=== PATIENT | male | born 1990 | race Caucasian/White ===

== ENCOUNTER 2016-12-26 21:06 | Emergency (ER) | payer SELFPAY ==
[~2016-12-26 21:06] MED LIST: Z.0.NO CURRENT MEDS
[2016-12-26 21:07] VITALS: BP 127/77; PULSE 88; RESP 18; TEMP 98.7; O2SAT 99
[2016-12-26] MEDS ORDERED: ULTR50TA5 PO (22:24)
[2016-12-26] MEDS ORDERED: PERI0.126 SWISH-SPIT (22:24)
[2016-12-26] MEDS ORDERED: PENI500T PO (22:24)
[2016-12-26] MEDS ORDERED: IBUP-232 PO (22:24)
--- NOTE | 2016-12-26 22:24 | PD ---
HPI Chief Complaint: Oral / Dental Pain or Problem Time Seen by Provider: 22:22 Travel History International Travel<30 days: No Contact w/Intl Traveler<30days: No Traveled to known affect area: No History of Present Illness HPI 26-year-old male presents to see department for evaluation of dental pain. Patient states he has had cavity for a long time but yesterday while eating his right mandibular first molar cracked. States pain has been "unbearable" since then. Denies any fever or chills. Denies any new trauma. Patient has no other symptoms to report. PFSH Past Medical History Medical History: Denies Significant Hx Depression: Yes Diminished Hearing: No Headaches: Yes (CHRONIC) Musculoskeletal: Yes (SX TO L FA/ PLATE&SCREWS) Tetanus Vaccination: Unknown Past Surgical History Other Surgery: Yes Social History Alcohol Use: Yes Tobacco Use: Yes (ONLY OCCASIONALLY) Substance Use: Yes Allergies-Medications (Allergen,Severity, Reaction): Coded Allergies: Benadryl (Verified Allergy, Severe, SWELLING, 01/02/12) Reported Meds & Prescriptions Reported Meds & Active Scripts Active Ultram (Tramadol HCl) 50 Mg Tab 50 Mg PO Q8H PRN Ibuprofen 600 Mg Tab 600 Mg PO Q8HR PRN Penicillin V Potassium 500 Mg Tab 500 Mg PO Q6H 10 Days Peridex Liq (Chlorhexidine Gluconate (Mouth) Liq) 0.12% Soln 15 Ml SWISH-SPIT BID Review of Systems Except as stated in HPI: all other systems reviewed are Neg Physical Exam Narrative GENERAL: Well-nourished, well-developed male patient in no acute distress SKIN: Focused skin assessment warm/dry. HEAD: Normocephalic. Without erythema or edema EYES: No scleral icterus. No injection or drainage. ENT: Mucosa pink and moist. No erythema or exudates. No uvular edema. No uvular , palatal, or tonsillar deviation. Airway patent. Nasal turbinates appear normal without nasal blood, purulent drainage or septal hematoma. DENTAL: The right mandibular first molar is decayed and chipped. There is surrounding gingival erythema and edema. No appreciable abscess.. No malocclusion. NECK: Supple, trachea midline. No JVD or lymphadenopathy. CARDIOVASCULAR: Regular rate and rhythm without murmurs, gallops, or rubs. RESPIRATORY: Breath sounds equal bilaterally. No accessory muscle use. MUSCULOSKELETAL: No cyanosis, or edema. BACK: Nontender without obvious deformity. No CVA tenderness. Data Data Last Documented VS Vital Signs Date Time Temp Pulse Resp B/P Pulse Ox O2 Delivery O2 Flow Rate FiO2 12/26/16 21:07 98.7 88 18 127/77 99 Room Air Orders Ketorolac Inj (Toradol Inj) (12/26/16 22:30) MDM Medical Decision Making Medical Screen Exam Complete: Yes Emergency Medical Condition: Yes Medical Record Reviewed: Yes Differential Diagnosis Dental caries versus dentalgia versus pulpitis versus gingivitis versus periodontal disease Narrative Course 26-year-old male presents to emergency department for evaluation of dental pain. Physical exam is consistent with a dental caries/chipped tooth. Patient will be started on oral antibiotics. He is encouraged to seek dental evaluation and return immediately with any acute worsening of symptoms. 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 Additional Impressions: Dental caries Dentalgia Referrals: Dentist Primary Care Physician Patient Instructions: Dental Caries (ED), General Instructions Additional Instructions: Follow-up with a dentist Return immediately with any acute worsening of symptoms Med/Other Pt SpecificInfo: Prescription(s) given Scripts Tramadol (Ultram)50 Mg Tab50 Mg PO Q8H PRN (PAIN GREATER THAN 5) #15 TAB Ref 0 Prov:Diane Oconnor MD 12/26/16 Ibuprofen 600 Mg [id number] Mg PO Q8HR PRN (PAIN) #30 TAB Ref 0 Prov:Dee Vega 12/26/16 Penicillin V Potassium 500 Mg [id number] Mg PO Q6H 10 Days Ref 0 Prov:Dee Vega 12/26/16 Chlorhexidine Gluconate (Mouth) Liq (Peridex Liq)0.12% Soln15 Ml SWISH-SPIT BID #473 ML Ref 0 Prov:Dee Vega 12/26/16 Disposition: 01 DISCHARGE HOME Condition: Stable Dee Vega December 26, 2016 22:24
[2016-12-26] MEDS ORDERED: KETOROLAC TROMETHAMINE 60 MG/2 ML (IM) VIAL IM ONE (22:30)
== END 2016-12-26 22:50 | disposition home or self-care (01) ==
LOC: NEPK 21:06
DX: K00.1 Supernumerary teeth (principal); K02.9 Dental caries, unspecified; Z72.0 Tobacco use
CPT/HCPCS: 96372; 99282; J1885

== ENCOUNTER 2017-03-21 19:10 | Observation (INO) | payer SELFPAY ==
[~2017-03-21] VITALS: Ht 167.6 cm; Wt 60.0 kg
[~2017-03-21 19:10] MED LIST changes: +IBUP-232 PO; +PENI500T PO; +PERI0.126 SWISH-SPIT; +ULTR50TA5 PO; -Z.0.NO CURRENT MEDS
[2017-03-21 19:24] VITALS: BP 103/51; PULSE 114; RESP 19; TEMP 100.1; O2SAT 93
--- NOTE | 2017-03-21 19:32 | PD ---
HPI Chief Complaint: OD/ Ingestion Time Seen by Provider: 19:31 Travel History International Travel<30 days: No Contact w/Intl Traveler<30days: No Traveled to known affect area: No History of Present Illness HPI The patient is a 26 year old male who presents to the [facility] emergency department with a history of reportedly accidentally overdosing on heroin prior to arrival. The patient reports that he injected this as well as snorted the heroin. He reports that he last used heroin a few days ago. He reports that he was trying to use Suboxone that he was obtaining from the street to get off of opiates. The patient reports that prior to this over the last 5 years he has intermittently been taking opiates off the street. The patient was noted to have a decreased level of consciousness prior to arrival, IV access was obtained and the patient was given Narcan 1 mg IV. The patient became more awake and alert and then had nausea and vomiting 2. The patient was given Zofran 4 mg IV prior to arrival. The patient's O2 saturations on room air are in the mid 80s on arrival. The patient was placed on supplemental oxygen and is saturating 94%. The patient reports that he feels well at this time. The patient is however drowsy on examination. The patient has family members at the bedside. The patient denies having any suicidal or homicidal ideations. He denies having any recent depression. On review of systems, the patient denies any recent fevers, congestion, neck pain, chest pain, shortness of breath , abdominal pain, vomiting, diarrhea, urinary symptoms, or neurologic symptoms. [facility] Past Medical History Narrative Medical The patient's past medical history is significant for opiate abuse, headaches. Depression: Yes Diminished Hearing: No Headaches: Yes (CHRONIC) Musculoskeletal: Yes (SX TO L FA/ PLATE&SCREWS) Immunizations Current: Yes Past Surgical History Narrative Surgical The patient's past surgical history is significant for left arm ORIF. Other Surgery: Yes Social History Alcohol Use: Yes (occasional) Tobacco Use: Yes (half a pack to one and a half packs daily) Substance Use: Yes (OPIATES, MARIJUANA) Allergies-Medications (Allergen,Severity, Reaction): Coded Allergies: Benadryl (Verified Allergy, Severe, SWELLING, 01/02/12) Reported Meds & Prescriptions Reported Meds & Active Scripts Active Ultram (Tramadol HCl) 50 Mg Tab 50 Mg PO Q8H PRN Ibuprofen 600 Mg Tab 600 Mg PO Q8HR PRN Penicillin V Potassium 500 Mg Tab 500 Mg PO Q6H 10 Days Peridex Liq (Chlorhexidine Gluconate (Mouth) Liq) 0.12% Soln 15 Ml SWISH-SPIT BID Review of Systems Except as stated in HPI: all other systems reviewed are Neg General / Constitutional: No: Fever Eyes: No: Visual changes HENT: No: Headaches Cardiovascular: No: Chest Pain or Discomfort Respiratory: No: Shortness of Breath Gastrointestinal: Positive: Nausea, Vomiting, No: Abdominal Pain Genitourinary: No: Dysuria Musculoskeletal: No: Pain Skin: No Rash Neurologic: Positive: Weakness (generalized weakness), Change in Mentation, No : Focal Abnormalities, Slurred Speech, Sensory Disturbance Psychiatric: No: Depression Endocrine: No: Polydipsia Hematologic/Lymphatic: No: Easy Bruising Physical Exam Narrative General: The patient is a well-developed well-nourished male, slightly drowsy on arrival , however otherwise able to provide his history and in no acute distress. Head and Neck exam: Head is normocephalic atraumatic. Eyes: EOMI, pupils are equal round and reactive to light. Nose: Midline septum with pink mucous membranes Mouth: Dentition unremarkable. Moist mucus membranes. Posterior oropharynx is not erythematous. No tonsillar hypertrophy. Uvula midline. Airway patent. Neck: No palpable lymphadenopathy. No nuchal rigidity. No thyromegaly. Cardiovascular: Sinus tachycardia in the 1 teens without murmurs, gallops, or rubs. No pulse deficit to the extremities and simultaneous auscultation and palpation of his radial artery. Lungs: Clear to auscultation bilaterally. No wheezes, rhonchi, or rales. Abdomen: Soft, without tenderness to palpation in all 4 quadrants of the abdomen. No guarding, rebound, or rigidity. Normal bowel sounds are audible. No tenderness on palpation of McBurney's point. Negative [place] sign. Extremities: No clubbing, cyanosis, or edema. 2+ pulses in all 4 extremities. No calf tenderness on palpation. Back: No spinous process tenderness to palpation. No costovertebral angle tenderness to palpation. Neurologic Exam: Grossly nonfocal. The patient is drowsy on examination although he is awake and able to provide his history. The patient is moving all extremities equally with 5 over 5 strength, intact sensation over all dermatomes. The patient has no facial asymmetry. Skin Exam: No rash noted. Intact skin that is warm and dry. Data Data Last Documented VS Vital Signs Date Time Temp Pulse Resp B/P Pulse Ox O2 Delivery O2 Flow Rate FiO2 03/21/17 21:00 95 17 105/66 98 Nasal Cannula 4 03/21/17 19:24 100.1 Orders Electrocardiogram (03/21/17 19:43) Complete Blood Count With Diff (03/21/17 19:43) Comprehensive Metabolic Panel (03/21/17 19:43) Prothrombin Time / Inr (Pt) (03/21/17 19:43) Act Partial Throm Time (Ptt) (03/21/17 19:43) Chest, Single Ap (03/21/17 19:43) Iv Access Insert/Monitor (03/21/17 19:43) Ecg Monitoring (03/21/17 19:43) Oximetry (03/21/17 19:43) Sodium Chloride 0.9% Flush (Ns Flush) (03/21/17 19:45) Call Poison Control (03/21/17 19:43) Drug Screen, Random Urine (03/21/17 19:43) Alcohol (Ethanol) (03/21/17 19:43) Salicylates (Aspirin) (03/21/17 19:43) Tylenol (Acetaminophen) (03/21/17 19:43) Sodium Chlor 0.9% 1000 Ml Inj (Ns 1000 M (03/21/17 19:45) Naloxone Inj (Narcan Inj) (03/21/17 21:02) Naloxone Inj (Narcan Inj) (03/21/17 21:15) Ondansetron Inj (Zofran Inj) (03/21/17 21:15) Place In Observation (03/21/17 ) Vital Signs (Adult) Q4H (03/21/17 21:38) Activity Oob With Assistance (03/21/17 21:38) [employer] Analyst / Telemetry .CONTINUOUS (03/21/17 21:38) Diet Heart Healthy (03/22/17 Breakfast) Sodium Chlor 0.9% 1000 Ml Inj (Ns 1000 M (03/21/17 21:38) Sodium Chloride 0.9% Flush (Ns Flush) (03/21/17 21:45) Sodium Chloride 0.9% Flush (Ns Flush) (03/22/17 09:00) Ondansetron Inj (Zofran Inj) (03/21/17 21:45) Case Management Consult (03/21/17 21:38) Naloxone Inj (Narcan Inj) (03/21/17 21:45) Admit Order (Ed Use Only) (03/21/17 21:38) Labs Laboratory Tests Test 03/21/17 03/21/17 19:50 19:58 White Blood Count 10.9 TH/MM3 Red Blood Count 4.03 MIL/MM3 Hemoglobin 13.4 GM/DL Hematocrit 38.5 % Mean Corpuscular Volume 95.4 FL Mean Corpuscular Hemoglobin 33.1 PG Mean Corpuscular Hemoglobin 34.7 % Concent Red Cell Distribution Width 13.8 % Platelet Count 261 TH/MM3 Mean Platelet Volume 6.9 FL Neutrophils (%) (Auto) 76.3 % Lymphocytes (%) (Auto) 14.8 % Monocytes (%) (Auto) 8.1 % Eosinophils (%) (Auto) 0.4 % Basophils (%) (Auto) 0.4 % Neutrophils # (Auto) 8.3 TH/MM3 Lymphocytes # (Auto) 1.6 TH/MM3 Monocytes # (Auto) 0.9 TH/MM3 Eosinophils # (Auto) 0.0 TH/MM3 Basophils # (Auto) 0.0 TH/MM3 CBC Comment DIFF FINAL Differential Comment Prothrombin Time 12.2 SEC Prothromb Time International 1.1 RATIO Ratio Activated Partial 27.0 SEC Thromboplast Time Sodium Level 135 MEQ/L Potassium Level 3.6 MEQ/L Chloride Level 104 MEQ/L Carbon Dioxide Level 21.3 MEQ/L Anion Gap 10 MEQ/L Blood Urea Nitrogen 9 MG/DL Creatinine 0.98 MG/DL Estimat Glomerular Filtration 91 ML/MIN Rate Random Glucose 149 MG/DL Calcium Level 7.5 MG/DL Total Bilirubin 0.6 MG/DL Aspartate Amino Transf 24 U/L (AST/SGOT) Alanine Aminotransferase 27 U/L (ALT/SGPT) Alkaline Phosphatase 97 U/L Total Protein 6.4 GM/DL Albumin 2.9 GM/DL Acetaminophen Level LESS THAN 2.0 MCG/ML Ethyl Alcohol Level LESS THAN 3 MG/DL Salicylates Level LESS THAN 1.7 MG/DL MDM Medical Decision Making Medical Screen Exam Complete: Yes Emergency Medical Condition: Yes Medical Record Reviewed: Yes Interpretation(s) Last Impressions Chest X-Ray 03/21/171942 Signed Impressions: Service Date/Time: Tuesday, March 21, 2017 19:51 - CONCLUSION: The lungs are clear. Edmund Lowry MD Differential Diagnosis Heroin overdose, versus other substance intoxication, versus polysubstance abuse , versus aspiration Narrative Course During the course of the patients emergency department visit, the patients history, examination, and differential diagnosis were reviewed with the patient. The patient had IV access obtained and blood work sent for analysis. The patient's recent cardiac surgeon with oximetry and blood pressure monitoring. Any ECG was done on arrival. The patient's ECG reveals a sinus tachycardia rate of 116, no acute ST segment elevation T waves are inverted in V1. The patient was initially provided normal saline 1 L IV fluid bolus, 2 L nasal cannula O2. The patient will be monitored closely for any recurrence of respiratory depression. The patient became drowsy and his blood pressure briefly dropped down to a blood pressure in the 70s. The patient was given Narcan 0.4 mg IV. The patient was given a second liter of normal saline IV fluids. The patient will be admitted for continued observation. Unfortunate, after Narcan the patient again had nausea and vomiting. The patient was given Zofran 4 mg IV. The patients laboratory studies were reviewed and remarkable for a white count 10.9, hemoglobin 13.4, platelets 261 with 76.3 neutrophils, 8.1 monocytes, CMP is remarkable for sodium of 135, glucose 149, calcium 7.5, albumin 2.9, PT 12.2 , PTT 27, salicylate less than 1.7, acetaminophen less than 2, alcohol less than 3. Radiology studies were reviewed and remarkable for a chest x-ray that shows that the lungs appear to be clear according to the reading radiologist. The patients results were discussed with the patient, including the plan of care. I explained that further testing and/ or monitoring is indicated based on the patients history, examination, and/ or laboratory findings. Therefore, I recommended admission for additional evaluation. The patient expressed understanding and was agreeable with this plan. The patient was admitted to the hospital in guarded condition and sent to a bed under the care of the [facility] hospitalist service. Physician Communication Physician Communication The patient's case was discussed with Dr. Stern who did agree to admit the patient for further evaluation and treatment at this time. Diagnosis Primary Impression: Drug overdose Qualified Code: T50.901A - Drug overdose, accidental or unintentional, initial encounter Additional Impression: Heroin abuse Admitting Information Admitting Physician Requests: Observation Diane Oconnor MD Mar 21, 2017 19:32
[2017-03-21 19:45] VITALS: RESP 15; O2SAT 95
[2017-03-21] MEDS ORDERED: SODIUM CHLORIDE 0.9% FLUSH 10 ML FLUSH IVF PRN (19:45)
[2017-03-21] MEDS ORDERED: SODIUM CHLOR 0.9% 1000 ML INJ 1,000 ML IV ONE (19:45)
[2017-03-21 20:16] LABS: AUTOMATED NEUTROPHIL # 8.3 TH/MM3 (1.8-7.7); BASOPHIL % 0.4 % (0.0-2.0); EOSINOPHIL % 0.4 % (0.0-4.0); HEMATOCRIT 38.5 % (39.0-51.0); HEMO FLAGS DIFF FINAL; LYMPH % 14.8 % (9.0-44.0); LYMPHOCYTE # 1.6 TH/MM3 (1.0-4.8); MEAN CELL VOLUME 95.4 FL (80.0-100.0); MEAN CORPUSCULAR HEMOGLOBIN 33.1 PG (27.0-34.0); MEAN CORPUSCULAR HGB CONC 34.7 % (32.0-36.0); MONO % 8.1 % (0.0-8.0); NEUT % 76.3 % (16.0-70.0); PLATELET COUNT 261 TH/MM3 (150-450); RED BLOOD COUNT 4.03 MIL/MM3 (4.50-5.90); RED CELL DISTRIBUTION WIDTH 13.8 % (11.6-17.2); WHITE BLOOD COUNT 10.9 TH/MM3 (4.0-11.0)
[2017-03-21 20:25] LABS: INTERNATIONAL NORMALIZED RATIO 1.1 RATIO; PROTHROMBIN TIME - PATIENT 12.2 SEC (9.8-11.6)
[2017-03-21 20:40] LABS: ALT (GPT) 27 U/L (12-78); ANION GAP 10 MEQ/L (5-15); AST (GOT) 24 U/L (15-37); BICARBONATE 21.3 MEQ/L (21.0-32.0); BLOOD UREA NITROGEN 9 MG/DL (7-18); CHLORIDE 104 MEQ/L (98-107); GLOMERULAR FILTRATION RATE 91 ML/MIN (>89); POTASSIUM 3.6 MEQ/L (3.5-5.1); SODIUM (NA) 135 MEQ/L (136-145)
[2017-03-21 20:41] LABS: ACETAMINOPHEN LESS THAN 2.0 MCG/ML (10.0-30.0)
[2017-03-21 20:43] LABS: ALKALINE PHOSPHATASE 97 U/L (45-117); TOTAL BILIRUBIN ADULT 0.6 MG/DL (0.2-1.0)
--- NOTE | 2017-03-21 20:44 | RADRPT ---
EXAM DATE/TIME: 03/21/2017 19:51 [facility] COMPARISON: No previous studies available for comparison. INDICATIONS : Possible overdose. MEDICAL HISTORY : None. SURGICAL HISTORY : None. ENCOUNTER: Initial ACUITY: 1 day PAIN SCORE: 5/10 LOCATION: Right upper quadrant Between shoulder blades. FINDINGS: A single view of the chest demonstrates the lungs to be symmetrically aerated without evidence of mas s, infiltrate or effusion. The cardiomediastinal contours are unremarkable. Osseous structures are intact. CONCLUSION: The lungs are clear. Edmund Lowry MD on March 21, 2017 at 20:42 Board Certified Radiologist. This report was verified electronically.
[2017-03-21 21:00] VITALS: BP 105/66; PULSE 95; RESP 17; O2SAT 98
[2017-03-21] MEDS ORDERED: NALOXONE HCL 0.4 MG/ML AMP ONE (21:02)
[2017-03-21] MEDS ORDERED: ONDANSETRON HCL 4 MG/2 ML VIAL IV PUSH ONE (21:15)
[2017-03-21] MEDS ORDERED: NALOXONE HCL 0.4 MG/ML AMP IV PUSH PRN (21:15)
[2017-03-21] MEDS ORDERED: NALOXONE HCL 0.4 MG/ML AMP IV PRN (21:45)
[2017-03-21] MEDS ORDERED: SODIUM CHLORIDE 0.9% FLUSH 10 ML FLUSH IV FLUSH PRN (21:45)
[2017-03-21] MEDS ORDERED: ONDANSETRON HCL 4 MG/2 ML VIAL IVP PRN (21:45)
[2017-03-21] MEDS: SODIUM CHLOR 0.9% 1000 ML INJ 1,000 ML IV SCH (21:48)
--- NOTE | 2017-03-21 23:56 | HHI.HP ---
HPI [facility] Primary Care Physician No Primary Care Physician Admission Diagnosis Accidental heroin overdose Diagnoses: Travel History International Travel<30 Days: No Contact w/Intl Traveler <30 Da: No Traveled to Known Affected Are: No History of Present Illness History from patient, ER physician communication, and review of medical records. Patient reported that he took heroine by IV route at around 5:30 PM. He reports after that, he does not remember anything. He had passed out at home. His found him on the floor and called 911. He was given Narcan by EMS and patient woke up and had quit a bit of vomiting episodes. In the emergency room, patient was awake and alert but does easily falls back asleep and still looks quite drowsy. His saturation was in the 80s at one point and had to be given another Narcan dose in ER. He vomited again. His blood pressure was also in the 70s while in ER but likely this was false as repeat measurements picked up to systolic of 100s without intervention. Patient also is skinny gentleman. Patient denies taking any alcohol or benzodiazepines at home. He reports that he only uses opiates and he was using Suboxone previously as well. He admits to using IV drug route. Upon further questioning, patient reports of some chills/diaphoresis/nausea. He is noted to be shaking at the time of my examination. He also reports of on and off sweats in the middle of the night. Does have some cough but nothing unusual from his baseline. On review of medical records, there was also an ER visit in December 2016 for dental pain. Vision reports of chills at home and is noted to be shaking during examination as well. Also reports of on and off sweating in the middle of the night. Reports some cough. Review of medical records reveals there is an ER visit in December 2016 for dental pain and infection. Review of Systems Except as stated in HPI: all other systems reviewed are Neg Past Family Social History Past Medical History none Past Surgical History metal plate in arm Allergies: Coded Allergies: Benadryl (Verified Allergy, Severe, SWELLING, 01/02/12) Family History dm in family grandma- pancreatic cancer Social History a pack or pack and half a day no drinking etoh- said only once in a blue seo drugs- iv opiates marijuana Physical Exam Vital Signs Vital Signs Date Time Temp Pulse Resp B/P Pulse Ox O2 Delivery O2 Flow Rate FiO2 03/21/17 19:45 15 95 Nasal Cannula 4 03/21/17 19:28 114 19 93 Nasal Cannula 2 03/21/17 19:24 100.1 114 19 103/51 93 Physical Exam GENERAL: This is a well-nourished, well-developed patient, in no apparent distress. However is noted to be with chills. Documented fever in ER of 100.1. Also easily falls back asleep during conversation SKIN: No rashes, ecchymoses or lesions. Cool and dry. HEAD: Atraumatic. Normocephalic. No temporal or scalp tenderness. EYES: Pupils equal round and reactive. Extraocular motions intact. No scleral icterus. ENT: Nose without bleeding, purulent drainage or septal hematoma. Airway patent. NECK: Trachea midline. No JVD Supple, nontender, no meningeal signs. CARDIOVASCULAR: Regular rate and rhythm without murmurs, gallops, or rubs. RESPIRATORY: Clear to auscultation. Breath sounds equal bilaterally. No wheezes , rales, or rhonchi. GASTROINTESTINAL: Abdomen soft, non-tender, nondistended. No hepato-splenomegaly , or palpable masses. No guarding. MUSCULOSKELETAL: Extremities without clubbing, cyanosis, or edema. No calf asymmetry NEUROLOGICAL: Awake and alert Motor and sensory grossly within normal limits. Normal speech. Laboratory Laboratory Tests Test 03/21/17 03/21/17 19:50 19:58 White Blood Count 10.9 Red Blood Count 4.03 Hemoglobin 13.4 Hematocrit 38.5 Mean Corpuscular Volume 95.4 Mean Corpuscular Hemoglobin 33.1 Mean Corpuscular Hemoglobin 34.7 Concent Red Cell Distribution Width 13.8 Platelet Count 261 Mean Platelet Volume 6.9 Neutrophils (%) (Auto) 76.3 Lymphocytes (%) (Auto) 14.8 Monocytes (%) (Auto) 8.1 Eosinophils (%) (Auto) 0.4 Basophils (%) (Auto) 0.4 Neutrophils # (Auto) 8.3 Lymphocytes # (Auto) 1.6 Monocytes # (Auto) 0.9 Eosinophils # (Auto) 0.0 Basophils # (Auto) 0.0 CBC Comment DIFF FINAL Differential Comment Prothrombin Time 12.2 Prothromb Time International 1.1 Ratio Activated Partial 27.0 Thromboplast Time Sodium Level 135 Potassium Level 3.6 Chloride Level 104 Carbon Dioxide Level 21.3 Anion Gap 10 Blood Urea Nitrogen 9 Creatinine 0.98 Estimat Glomerular Filtration 91 Rate Random Glucose 149 Calcium Level 7.5 Total Bilirubin 0.6 Aspartate Amino Transf 24 (AST/SGOT) Alanine Aminotransferase 27 (ALT/SGPT) Alkaline Phosphatase 97 Total Protein 6.4 Albumin 2.9 Acetaminophen Level LESS THAN 2.0 Ethyl Alcohol Level LESS THAN 3 Salicylates Level LESS THAN 1.7 Result Diagram: 03/21/17 1950 03/21/171949 Imaging Last 48 hours Impressions Chest X-Ray 03/21/171942 Signed Impressions: Service Date/Time: Tuesday, March 21, 2017 19:51 - CONCLUSION: The lungs are clear. Edmund Lowry MD Septic Shock Reassessment Heart: Irregular Assessment and Plan Assessment and Plan Impression: heroine overdose persistent lethargy- claims his insomnia fever chills / tremors- likely from fever recent dental pain related ER visit in 12/2016 Plan: monitor overnight blood cx ua and urine cx echo in am given risk factors, dental pain, clinically does not look well DVT prophylaxiswith Lovenox. GI prophylaxis on pantoprazole. Discussed Condition With Patient, ER physician, patient's father at the bedside Alonzo Stern MD Mar 21, 2017 23:56
[2017-03-22] VITALS (11 sets, daily range): BP systolic 96–128; BP diastolic 53–65; PULSE 54–92; RESP 16–18; TEMP 96.6–98.5; O2SAT 95–99
[2017-03-22] MEDS ORDERED: TEMAZEPAM 7.5 MG CAP PO ONE (02:00)
[2017-03-22] MEDS: SODIUM CHLOR 0.9% 1000 ML INJ 1,000 ML IV SCH ×2 (07:38→19:00)
[2017-03-22] MEDS: ENOXAPARIN SODIUM 40 MG/0.4 ML SYRINGE SQ SCH (08:05)
[2017-03-22] MEDS: PANTOPRAZOLE SOD 40 MG DELAYED RELEASE TAB PO SCH (08:05)
[2017-03-22] MEDS: SODIUM CHLORIDE 0.9% FLUSH 10 ML FLUSH IV FLUSH SCH ×2 (08:06→21:00)
--- NOTE | 2017-03-22 09:10 | HHI.PR ---
Subjective Remarks Follow up for heroin overdose. Patient is currently doing well. No chest pain, shortness of breath, fever, chills. He reports having nightly fever in the last several weeks to months. Objective Vitals Vital Signs Date Time Temp Pulse Resp B/P Pulse Ox O2 Delivery O2 Flow Rate FiO2 03/22/17 07:25 97.6 73 16 103/55 97 03/22/17 04:22 97.5 84 17 96/53 96 03/22/17 04:04 85 03/22/17 01:29 92 03/22/17 01:10 96.6 68 18 128/65 95 03/21/17 21:00 95 17 105/66 98 Nasal Cannula 4 03/21/17 19:45 15 95 Nasal Cannula 4 03/21/17 19:28 114 19 93 Nasal Cannula 2 03/21/17 19:24 100.1 114 19 103/51 93 Result Diagram: 03/21/17194903/21/171949 Imaging Last Impressions Chest X-Ray 03/21/171942 Signed Impressions: Service Date/Time: Tuesday, March 21, 2017 19:51 - CONCLUSION: The lungs are clear. Edmund Lowry MD Objective Remarks GENERAL: AOX3, NAD SKIN: Warm and dry. HEAD: Normocephalic. EYES: No scleral icterus. No injection or drainage. NECK: Supple, trachea midline. No JVD or lymphadenopathy. CARDIOVASCULAR: Regular rate and rhythm without murmurs, gallops, or rubs. No Jan[place]ay lesions or Osler's nodes. RESPIRATORY: Breath sounds equal bilaterally. No accessory muscle use. GASTROINTESTINAL: Abdomen soft, non-tender, nondistended. MUSCULOSKELETAL: No cyanosis, or edema. BACK: Nontender without obvious deformity. No CVA tenderness. Procedures None. A/P Problem List: (1) Heroin abuse ICD Code: F11.10 Status: Acute (2) IVDU (intravenous drug user) ICD Code: F19.90 Status: Acute (3) Drug overdose ICD Code: T50.901A Status: Acute Assessment and Plan Mr. Mari is a pleasant 26 year old male with a history of IVDU who presented to the hospital due to accidental overdose on heroin on 03/21/2017. He reported using heroin IV as well as by snorting. In an effort to get off opioid addiction he has used Suboxone. However, he has relapsed and has been using opiates. He was found to have decreased level of consciousness and received Narcan. He became more alert and had nausea, vomiting. His O2 sat in the ED was in the mid 80s on arrival and improved to 94% with supplemental O2. - Overdose on Heroin - Polysubstance abuse - Intravenous drug user - Will follow blood cultures. If indicated, we will pursue Endocarditis work up. - At this point, there is no heart murmur, no Janeway lesions, no Osler's node. - Not a significant clinical suspicion for Endocarditis. - Counselled patient regarding polysubstance abuse. - If Blood cultures negative, we can discharge patient - hopefully by 2016. - Acute respiratory failure hypoxic ( O2 sat in the mid 80s in the ED). - Currently resolved. Patient is alert, oriented x 3, coherent. - O2 supplement PRN to maintain O2 sat > 90%. Full code. SCDs. Problem Qualifiers (1) Drug overdose: Qualified Code: T50.901A - Drug overdose, accidental or unintentional, initial encounter Ryan Latif DO Mar 22, 2017 09:10
--- NOTE | 2017-03-22 15:09 | EKG ---
Date Performed: 03/21/2017 Time Performed: 19:20:14 PTAGE: 26 years EKG: SINUS TACHYCARDIA POSSIBLE LEFT ATRIAL ENLARGEMENT POSSIBLE RIGHT VENTRICULAR CONDUCTION DE LAY SEPTAL MYOCARDIAL INFARCTION ABNORMAL ECG PREVIOUS TRACING : 03/19/2010 03.53 Clinical correlation is recommended. DOCTOR: Vasiliy Hugo Interpretating Date/Time 03/22/2017 15:09:01
[2017-03-23] MEDS: SODIUM CHLOR 0.9% 1000 ML INJ 1,000 ML IV SCH (03:38)
[2017-03-23 03:48] VITALS: BP 108/89; PULSE 58; RESP 18; TEMP 98.4; O2SAT 94
[2017-03-23 04:15] VITALS: PULSE 63
[2017-03-23 07:51] VITALS: PULSE 52
[2017-03-23 07:58] VITALS: BP 107/58; PULSE 66; RESP 16; TEMP 97.8; O2SAT 95
[2017-03-23] MEDS: SODIUM CHLORIDE 0.9% FLUSH 10 ML FLUSH IV FLUSH SCH (08:50)
[2017-03-23] MEDS: ENOXAPARIN SODIUM 40 MG/0.4 ML SYRINGE SQ SCH (08:50)
[2017-03-23] MEDS: PANTOPRAZOLE SOD 40 MG DELAYED RELEASE TAB PO SCH (08:50)
--- NOTE | 2017-03-23 09:22 | HHI.PR ---
Subjective Remarks Follow up for heroin overdose. The patient has no specific medical complaints today. Denies fevers/chills, chest pain, shortness of breath, or abdominal complaints. He is tolerating oral intake. Again discussed abstaining from drug use and utilizing resources such as [facility]; patient verbalized understanding. Objective Vitals Vital Signs Date Time Temp Pulse Resp B/P Pulse Ox O2 Delivery O2 Flow Rate FiO2 03/23/17 07:58 97.8 66 16 107/58 95 03/23/17 07:51 52 03/23/17 04:15 63 03/23/17 03:48 98.4 58 18 108/89 94 03/22/17 23:29 54 03/22/17 23:13 98.0 59 18 112/64 97 03/22/17 20:06 62 03/22/17 19:10 97.7 64 18 116/58 99 03/22/17 16:40 98.5 55 18 103/59 97 I/O 03/22/17 03/22/17 03/22/17 03/23/17 03/23/17 03/23/17 07:00 15:00 23:00 07:00 15:00 23:00 Intake Total 800 ml 1150 ml Balance 800 ml 1150 ml Intake Oral 650 ml IV Total 800 ml 500 ml # Voids 3 Result Diagram: 03/21/17194903/21/171949 Imaging Last Impressions Chest X-Ray 03/21/171942 Signed Impressions: Service Date/Time: Tuesday, March 21, 2017 19:51 - CONCLUSION: The lungs are clear. Edmund Lowry MD Objective Remarks GENERAL: Well-nourished, well-developed young male patient in [facility]. SKIN: Warm and dry. No rash. HEENT: Normocephalic. Atraumatic.Pupils equal and round. Mucous membranes pink and moist. NECK: Supple. Trachea midline. CARDIOVASCULAR: Regular rate and rhythm. S1, S2 noted. No murmur appreciated. RESPIRATORY: No accessory muscle use. Clear to auscultation. Breath sounds equal bilaterally. GASTROINTESTINAL: Abdomen soft, non-tender, nondistended. Normoactive bowel sounds x4. MUSCULOSKELETAL: No obvious deformities. Extremities without clubbing, cyanosis , or edema. NEUROLOGICAL: Awake and alert. No obvious cranial nerve deficits. Motor grossly within normal limits. Normal speech. PSYCHIATRIC: Appropriate mood and affect; insight and judgment normal. Procedures None. Medications and IVs Current Medications Medications (Trade) Dose Ordered Sig/Michael Route Start Time Stop Time Status Last Admin (NS 1000 ml Inj) 1,000 ml @ 100 mls/hr Q10H IV 03/21/17 21:38 03/23/17 03:38 (NS Flush) 2 ml UNSCH PRN IV FLUSH 03/21/17 21:45 (NS Flush) 2 ml BID IV FLUSH 03/22/17 09:00 03/23/17 08:50 (Zofran Inj) 4 mg Q6H PRN IVP 03/21/17 21:45 (Narcan Inj) 0.4 mg UNSCH PRN IV 03/21/17 21:45 (Lovenox Inj) 40 mg Q24H SQ 03/22/17 09:00 03/23/17 08:50 (Protonix) 40 mg DAILY PO 03/22/17 09:00 03/23/17 08:50 A/P Problem List: (1) Heroin abuse ICD Code: F11.10 Status: Acute (2) IVDU (intravenous drug user) ICD Code: F19.90 Status: Acute (3) Drug overdose ICD Code: T50.901A Status: Acute Assessment and Plan Mr. Mari is a pleasant 26 year old male with a history of IVDU who presented to the hospital due to accidental overdose on heroin on 03/21/2017. He reported using heroin IV as well as by snorting. In an effort to get off opioid addiction he has used Suboxone. However, he has relapsed and has been using opiates. He was found to have decreased level of consciousness and received Narcan. He became more alert and had nausea, vomiting. His O2 sat in the ED was in the mid 80s on arrival and improved to 94% with supplemental O2. - Overdose on Heroin - Polysubstance abuse - Intravenous drug user - Monitor blood cultures, If positive, plan to pursue Endocarditis work up. - At this point, there is no heart murmur, no [place]ay lesions, no Osler's node. - Not a significant clinical suspicion for Endocarditis. - Counselled patient regarding polysubstance abuse. Case management provided information on [facility] and local rehab resources - If Blood cultures negative, will likely discharge the patient today 03/23. - Acute hypoxic respiratory failure: ( O2 sat in the mid 80s in the ED). Secondary to overdose. - Currently resolved. Patient is alert, oriented x 3, coherent. - O2 supplement PRN to maintain O2 sat > 90%. Full code. SCDs. Discharge Planning 0910hrs: Likely discharge today if blood cultures negative. 1145hrs: Patient's blood cultures negative x1day. Will discharge home. Will plan to follow up on blood cultures after discharge. RN to update patient's contact information prior to discharge. Discharge patient to home Condition on discharge: Improved Regular Diet as tolerated Ad Sanjuana activity Rx written: none Follow-up with primary care physician and drug rehab at [facility] Problem Qualifiers (1) Drug overdose: Qualified Code: T50.901A - Drug overdose, accidental or unintentional, initial encounter Yohana Arboleda PA-C Mar 23, 2017 9:22 am
--- NOTE | 2017-03-23 11:43 | HHI.DCPOC ---
Discharge Care Plan Diagnosis: (1) Drug overdose (2) Heroin abuse Goals to Promote Your Health * To prevent worsening of your condition and complications * To maintain your health at the optimal level Directions to Meet Your Goals Take your medications as prescribed Follow your dietary instruction Follow activity as directed Keep your appointments as scheduled Take your immunizations and boosters as scheduled If your symptoms worsen call your PCP, if no PCP go to Urgent Care Center or Emergency Room Smoking is Dangerous to Your Health. Avoid second hand smoke Call the 24-hour hour crisis hotline for domestic abuse at Yohana Arboleda PA-C Mar 23, 2017 11:43
[2017-03-23 12:05] VITALS: BP 100/58; PULSE 72; RESP 18; TEMP 97.7; O2SAT 98
== END 2017-03-23 13:59 | disposition home or self-care (01) ==
LOC: NEPC 19:10 → INTOOBSV 21:41 → NEDA 21:41 → NEPFCDU 03-22 00:56
PROVIDERS: ADMIT Hospitalist; ATTEND Hospitalist
DX: T40.1X1A Poisoning by heroin, accidental (unintentional), initial encounter (principal); R40.0 Somnolence; R11.2 Nausea with vomiting, unspecified; F11.10 Opioid abuse, uncomplicated; F19.90 Other psychoactive substance use, unspecified, uncomplicated; F12.90 Cannabis use, unspecified, uncomplicated; Y92.009 Unspecified place in unspecified non-institutional (private) residence as the place of occurrence of the external cause; R50.9 Fever, unspecified; F17.200 Nicotine dependence, unspecified, uncomplicated
CPT/HCPCS: 71010; 76937; 80053; 80307; 85025; 85610; 85730; 87040; 93005; 96361; 96372; 96374; 96375; 99285; G0378; J1650; J2310; J2405; J7030